=== PATIENT | female | born 1955 | race Caucasian/White ===

== ENCOUNTER 2017-05-22 22:28 | Emergency (ER) | payer MEDICAID ==
[~2017-05-22] VITALS: Ht 154.9 cm; Wt 94.8 kg
[2017-05-23 00:09] VITALS: BP 146/82
== END 2017-05-23 00:17 | disposition home or self-care (01) ==
LOC: ED 22:28
DX: R04.0 Epistaxis (principal); I10 Essential (primary) hypertension; E11.9 Type 2 diabetes mellitus without complications; E78.00 Pure hypercholesterolemia, unspecified; M19.90 Unspecified osteoarthritis, unspecified site

== ENCOUNTER 2017-11-08 15:26 | Emergency (ER) | payer MEDICAID ==
[~2017-11-08] VITALS: Ht 152.4 cm; Wt 99.3 kg
[2017-11-08 15:37] VITALS: Ht 152.4 cm; Wt 99.3 kg
[2017-11-08 17:54] VITALS: BP 143/86
== END 2017-11-08 17:54 | disposition home or self-care (01) ==
LOC: ED 15:26
DX: K59.00 Constipation, unspecified (principal); I10 Essential (primary) hypertension; E11.9 Type 2 diabetes mellitus without complications; E78.00 Pure hypercholesterolemia, unspecified
CPT/HCPCS: J1885

== ENCOUNTER 2017-11-08 22:55 | Emergency (ER) | payer MEDICAID ==
[~2017-11-08] VITALS: Ht 157.5 cm; Wt 100.8 kg
[2017-11-08 23:01] VITALS: Ht 157.5 cm; Wt 100.8 kg
[2017-11-09 00:02] VITALS: BP 155/88
== END 2017-11-09 00:02 | disposition home or self-care (01) ==
LOC: ED 22:55
DX: K59.00 Constipation, unspecified (principal)